=== PATIENT | male | born 1990 | race Hispanic/Latino ===

== ENCOUNTER 2018-12-16 05:57 | Emergency (ER) | payer SELFPAY ==
[2018-12-16 06:26] LABS: Absolute Lymphocytes (CBC) 1.9 K/uL (0.7-4.9); Basophils % 0.9 % (0-1.3); Hematocrit 47.8 % (39.6-49.0); Lymphocytes % 20.8 % (15.3-44.8); MPV 9.5 fL (7.6-11.3); RBC Red Blood Cell Count 5.49 M/uL (4.33-5.43)
[2018-12-16 06:36] LABS: Potassium 3.9 mmol/L (3.5-5.1)
[2018-12-16] MEDS ORDERED: MORPHINE 4 MG/ML SYR ONE (06:53)
[2018-12-16] MEDS ORDERED: ONDANSETRON 4 MG/2 ML VIAL ONE ×3 (06:53→13:13)
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
--- NOTE | 2018-12-16 09:33 | EKG ---
Test Date: 2018-12-16 Test Time: 07:32:47 [employer]: JOSE MEASUREMENT RESULTS: Intervals: Rate: 74 VA: 152 QRSD: 112 QT: 406 QTc: 450 [place]: P: 10 VA: 152 QRS: 90 T: 55 INTERPRETIVE STATEMENTS: Normal sinus rhythm with sinus arrhythmia Rightward axis Borderline ECG No previous ECG available for comparison Electronically Signed On 12-16-18 09:32:38 CDT by Leonel Barrios
[2018-12-16] MEDS ORDERED: HYDROCODONE/APAP 10/325 TAB ONE (11:03)
[2018-12-16] MEDS ORDERED: NA CHLORIDE 0.9% 100 ML IV ONE (11:32)
[2018-12-16] MEDS ORDERED: METOCLOPRAMIDE 10 MG/2mL INJ ONE (11:32)
[2018-12-16] MEDS ORDERED: PROMETHAZINE 25 MG/ML VIAL ONE (13:13)
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
[2018-12-16 17:24] VITALS: BP 107/62; O2SAT 98
== END 2018-12-16 16:54 | disposition home or self-care (01) ==
LOC: ER 05:57
DX: S00.81XA Abrasion of other part of head, initial encounter (principal); R93.7 Abnormal findings on diagnostic imaging of other parts of musculoskeletal system; V09.9XXA Pedestrian injured in unspecified transport accident, initial encounter; Z72.0 Tobacco use
CPT/HCPCS: 36415; 70450; 70486; 71260; 72125; 72141; 72146; 72148; 74177; 76377; 80048; 85025; 86850; 86900; 86901; 93005; 96374; 96375; 99285; J2405; J2550; J2765; Q9967